=== PATIENT | female | born 1930 | race Caucasian/White ===

== ENCOUNTER 2017-07-28 12:07 | Emergency (ER) | payer OTHER, MEDICARE ==
[2017-07-28 12:17] VITALS: BP 162/89
--- NOTE | 2017-07-28 13:31 | XRAY Preliminary Report ---
Exam: XR HUMERUS RT IMPRESSION: Right humeral head and neck fracture. [facility] SITE ID: [id number]
--- NOTE | 2017-07-28 13:35 | XRAY Preliminary Report ---
Exam: XR SHOULDER 3 VIEW RT IMPRESSION: Right humeral head and neck fracture. [facility] SITE ID: [id number]
--- NOTE | 2017-07-28 13:43 | ED Physician Documentation ---
PD HPI Fall - Stated complaint Stated Complaint: GLF - Chief complaint Chief Complaint: Trauma Ext - History obtained from History obtained from: Patient - History of Present Illness Mechanism of injury: Tripped (fell to the right.), Lost balance. No: Syncope Fall distance: Standing position Timing - onset: Today Injury(ies) location: Face (tip of nose), Right Upper Extremity (humerus/ shoulder), Right Lower Extremity (knee abrasion), Left Lower Extremity (knee abrasion) Associated symptoms: No: LOC, AMS, Neck pain, Weakness, Paresthesias Worsens with: Movement Contributing factors: No: Anticoagulated, Intoxicated Similar symptoms before: Has not had sx before Recently seen: Not recently seen Review of Systems Constitutional: denies: Fever, Chills Nose: denies: Rhinorrhea / runny nose, Congestion Throat: denies: Sore throat Respiratory: denies: Dyspnea, Cough Musculoskeletal: denies: Neck pain, Back pain Neurologic: denies: Headache, Head injury PD PAST MEDICAL HISTORY - Past Medical History Past Medical History: Yes Cardiovascular: Hypertension Respiratory: None Neuro: None Endocrine/Autoimmune: None GI: None 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 : None HEENT: None Psych: None Musculoskeletal: None Derm: None - Past Surgical History Past Surgical History: Yes General: Appendectomy - Present Medications Home Medications: Ambulatory Orders Medication Instructions Recorded Confirmed Docusate Sodium 100 mg PO DAILY #20 capsule 07/28/17 07/30/17 Naproxen 375 mg PO BID #20 tablet 07/28/17 07/30/17 Losartan [Cozaar] 100 mg PO DAILY 07/30/17 07/30/17 Metoprolol Tartrate [Lopressor] 25 mg PO BID 07/30/17 07/30/17 Simvastatin [Zocor] 20 mg PO DAILY 07/30/17 07/30/17 Nitrofurantoin Monohyd/M-Cryst 100 mg PO BID 5 Days capsule 07/31/17 [Macrobid 100 mg Capsule] - Allergies Allergies/Adverse Reactions: Allergies Allergy/AdvReac Type Severity Reaction Status Date / Time No Known Drug Allergies Allergy Verified 07/30/17 22:51 - Social History Does the pt smoke?: Yes Smoking Status: Light tobacco smoker Does the pt drink ETOH?: Yes ETOH Use: Wine Does the pt have substance abuse?: No - Immunizations Immunizations are current?: No Immunizations: TDAP current <10years - POLST Patient has POLST: No PD ED PE NORMAL - Vitals Vital signs reviewed: Yes - General General: Alert and oriented X 3, Well developed/nourished, Other (guarding motion right shoulder. Pain with slight movement. ) - HEENT HEENT: Atraumatic (except for mild abrasion on nose tip. ) - Neck Neck: Supple, no meningeal sign, No bony TTP, No adenopathy - Cardiac Cardiac: RRR, No murmur - Respiratory Respiratory: Clear bilaterally, Other (no chestwall tenderness.) - Abdomen Abdomen: Soft, Non tender - Back Back: No CVA TTP, No spinal TTP - Derm Derm: Normal color, Warm and dry - Extremities Extremities: Other (knees with some mild tenderness anteriorly but good ROM and able to stand/walk, without effusion. Right proximal humerus area tender, without swelling/bruising yet. Clavicle not tender. Normal color and pulses in wrist/hand.) - Neuro Neuro: Alert and oriented X 3, No motor deficit, No sensory deficit, Normal speech Results - Vitals Vitals: Oxygen O2 Source Room air - Rads (name of study) right shoulder Radiology: Prelim report reviewed, EMP read contemporaneously (proximal humerus fracture. ) PD MEDICAL DECISION MAKING - ED course Complexity details: reviewed results, considered differential, d/w patient Departure - Departure Disposition: 01 Home, Self Care Clinical Impression: Accidental fall Qualifiers: Encounter type: initial encounter Qualified Code(s): W19.XXXA - Unspecified fall, initial encounter Knee abrasion Qualifiers: Encounter type: initial encounter Laterality: unspecified laterality Qualified Code(s): S80.219A - Abrasion, unspecified knee, initial encounter Nose abrasion Qualifiers: Encounter type: initial encounter Qualified Code(s): S00.31XA - Abrasion of nose, initial encounter Proximal humerus fracture Qualifiers: Encounter type: initial encounter Fracture type: closed Fracture morphology: other fracture Fracture alignment: displaced Laterality: right Qualified Code(s) : S42.291A - Other displaced fracture of upper end of right humerus, initial encounter for closed fracture Condition: Stable Record reviewed to determine appropriate education?: Yes Instructions: ED Fx Shoulder Follow-Up: Jean Carlos Parker MD [Provider Admit Priv/Credential] - Prescriptions: Docusate Sodium 100 mg PO DAILY #20 capsule Naproxen 375 mg PO BID #20 tablet Comments: Regular food and fluids. Use naproxen twice daily for the next 7-10 days as an anti-inflammatory. Add Tylenol or hydrocodone if needed for pain. Use a stool softener daily to prevent constipation from the medications. Keep the right arm in a sling to support and help align the fracture. Follow-up with orthopedics in about a week, call tomorrow or today for an appointment. He will want to sleep in the best position comfortable, most people find a recliner with the sling supporting the arm to be the best but whatever works for you. Recheck if worsening pain or other complications such as discoloration numbness or weakness in the hand. This will take about 6 weeks to fully heal up. Discharge Date/Time: 07/28/17 14:43
--- NOTE | 2017-07-28 13:51 | XRAY Report ---
EXAM: RIGHT HUMERUS RADIOGRAPHY EXAM DATE: 07/28/2017 12:58 PM. CLINICAL HISTORY: Pain after fall today. COMPARISON: None. TECHNIQUE: 2 views. FINDINGS: Bones: Osteopenia. Acute comminuted right humeral head and neck fracture, mildly impacted, with 15 degree anterior angul ation at the impaction site. The epicenter of the humeral head is at the epicenter of the glenoid fos sa. Joints: Elbow is grossly unremarkable. Soft Tissues: Edema at the fracture site. IMPRESSION: Right humeral head and neck fracture. [facility] Referring Provider Line: [phone] SITE ID: [id number]
--- NOTE | 2017-07-28 13:51 | XRAY Report ---
EXAM: Right SHOULDER RADIOGRAPHY EXAM DATE: 07/28/2017 12:58 PM. CLINICAL HISTORY: Right shoulder pain after a fall today. COMPARISON: None. TECHNIQUE: 3 views. FINDINGS: Bones: Acute comminuted displaced impacted fracture involving the right humeral head and neck. Degree of anterior angulation is 30 degrees, which is more accurately measured on this dedicated shoulder v ersus the prior humerus study. Joints: Epicenter of the humeral head fracture fragments are at the epicenter of the glenoid fossa. N ormal AC joint. Type II acromion. Soft tissues: Edema at the fracture site. IMPRESSION: Right humeral head and neck fracture. [facility] Referring Provider Line: [phone] SITE ID: [id number]
[2017-07-28] MEDS ORDERED: HYDROcod/ACETAM 5/325 MG TABLET PO STA (14:16)
[2017-07-28] MEDS ORDERED: IBUPROFEN 600 MG TABLET PO STA (14:16)
[2017-07-28] MEDS ORDERED: IBUPROFEN 600 MG TABLET PO ONE (14:31)
[2017-07-28] MEDS ORDERED: HYDROcod/ACETAM 5/325 MG TABLET ONE (14:31)
== END 2017-07-28 14:43 | disposition home or self-care (01) ==
LOC: ED 12:07
DX: S42.291A Other displaced fracture of upper end of right humerus, initial encounter for closed fracture (principal); S00.31XA Abrasion of nose, initial encounter; S80.212A Abrasion, left knee, initial encounter; S80.211A Abrasion, right knee, initial encounter; W01.0XXA Fall on same level from slipping, tripping and stumbling without subsequent striking against object, initial encounter; I10 Essential (primary) hypertension; F17.200 Nicotine dependence, unspecified, uncomplicated
CPT/HCPCS: 1040M; 73030; 73060; 99283; A9270

== ENCOUNTER 2017-07-30 22:38 | Emergency (ER) | payer MEDICARE ==
[2017-07-30 23:10] LABS: BASOPHILS # (AUTO) 0.1 10^3/uL (0.0-0.1); BASOPHILS % (AUTO) 0.7 %; EOSINOPHILS # (AUTO) 0.4 10^3/uL (0.0-0.7); EOSINOPHILS % (AUTO) 4.3 %; HCT - HEMATOCRIT 31.6 % (37.0-47.0); HGB - HEMOGLOBIN 10.6 g/dL (12.0-16.0); LYMPHOCYTES # (AUTO) 1.7 10^3/uL (1.5-3.5); LYMPHOCYTES % (AUTO) 18.3 %; MEAN CORPUSCULAR HEMOGLOBIN 29.3 pg (27.0-31.0); MEAN CORPUSCULAR HGB CONC 33.5 g/dL (32.0-36.0); MEAN CORPUSCULAR VOLUME 87.7 fL (81.0-99.0); MEAN PLATELET VOLUME 7.4 fL (7.9-10.8); MONOCYTES # (AUTO) 1.2 10^3/uL (0.0-1.0); MONOCYTES % (AUTO) 12.9 %; NEUTROPHILS % (AUTO) 63.8 %; RED BLOOD COUNT 3.61 10^6/uL (4.20-5.40); UNCORRECTED WHITE BLOOD COUNT 9.4 x10^3/uL; WHITE BLOOD COUNT 9.4 x10^3/uL (4.8-10.8)
[2017-07-30 23:23] LABS: BILIRUBIN,TOTAL 0.6 mg/dL (0.2-1.0); CALCIUM 8.6 mg/dL (8.5-10.3); CREATININE 1.4 mg/dL (0.4-1.0); POTASSIUM 4.1 mmol/L (3.5-5.0); TOTAL PROTEIN 7.3 g/dL (6.7-8.2)
[2017-07-30 23:48] LABS: BILIRUBIN,URINE NEGATIVE (NEGATIVE)
[2017-07-30 23:50] LABS: UA w/ MICROSCOPIC CHARGE YES
--- NOTE | 2017-07-30 23:57 | CT Preliminary Report ---
Exam: CT HEAD W/O IMPRESSION: Generalized age-related cortical atrophic changes without evidence of acute intracranial abnormality. [facility] SITE ID: [id number]
[2017-07-30 23:59] LABS: UR CULTURE IF IND NOT INDICATED
--- NOTE | 2017-07-31 | CT Report ---
EXAM: CT HEAD EXAM DATE: 07/30/2017 11:22 PM. CLINICAL HISTORY: Fall, decreased mental status. COMPARISON: None. TECHNIQUE: Multiaxial CT images were obtained from the foramen magnum to the vertex. Reformats: Coron al. IV contrast: None. In accordance with CT protocol optimization, one or more of the following dose reduction techniques w ere utilized for this exam: automated exposure control, adjustment of mA and/or KV based on patient s ize, or use of iterative reconstructive technique. FINDINGS: Parenchyma: No intraparenchymal hemorrhage. No evidence of mass, midline shift, or CT findings of acu te infarction. Luna-white differentiation is distinct. Diffuse chronic microangiopathic white matter changes are evident. Extraaxial Spaces: Normal for age. No subdural or epidural collections identified. Ventricles: The ventricles and cortical sulci are enlarged, consistent with age-related tissue loss. Sinuses and orbits: Imaged paranasal sinuses, orbits, and mastoids show no significant abnormality. Bones: No evidence of fracture or calvarial defect. Other: None. IMPRESSION: Generalized age-related cortical atrophic changes without evidence of acute intracranial abnormality. [facility] Referring Provider Line: [phone] SITE ID: [id number]
[2017-07-31] MEDS ORDERED: ISOPROTERENOL IVP STA (00:02)
[2017-07-31] MEDS ORDERED: SODIUM CHLORIDE 0.9% IVP STA (00:02)
[2017-07-31] MEDS ORDERED: NITROFURANTOIN MACRO 100 MG CAPSULE PO STA (00:36)
--- NOTE | 2017-07-31 00:36 | ED Physician Documentation ---
PD HPI ALTERED MENTAL STATUS - Stated complaint Stated Complaint: ALOC - Chief complaint Chief Complaint: Neuro - History obtained from History obtained from: Patient, Family - History of Present Illness Timing - onset: Yesterday Timing - details: Gradual onset, Waxing and waning Quality / character: Confused, Disoriented Associated symptoms: No: Fever, Headache, Cough, Urinary sx, General weakness Contributing factors: New medication. No: Anticoagulated, Diabetic Basline status: Alert and oriented X 3, Ambulatory, Independent Similar symptoms before: Has not had sx before Recently seen: Not recently seen - Additional information Additional information: Patient is an 87 year old female who is brought in by her family for intermittent confusion and delusions. Family state that during the day the patient is fine, but for the last few days, at night the patient has become confused. She will be ok again the next day. The family state that it seems that the symptoms started after the patient fell a few days ago. Upon initial evaluation in the emergency department patient was awake, alert and oriented and in no distress. Review of Systems Constitutional: denies: Fever, Chills Eyes: denies: Decreased vision, Photophobia Nose: reports: Reviewed and negative Throat: reports: Reviewed and negative Cardiac: denies: Chest pain / pressure, Palpitations GI: denies: Abdominal Pain, Nausea, Vomiting : denies: Dysuria, Frequency Skin: denies: Rash, Lesions Neurologic: reports: Confused, Altered mental status. 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 : None HEENT: None Psych: None Musculoskeletal: None Derm: None - Past Surgical History Past Surgical History: Yes General: Appendectomy - Present Medications Home Medications: Ambulatory Orders Medication Instructions Recorded Confirmed Docusate Sodium 100 mg PO DAILY #20 capsule 07/28/17 07/30/17 Naproxen 375 mg PO BID #20 tablet 07/28/17 07/30/17 Losartan [Cozaar] 100 mg PO DAILY 07/30/17 07/30/17 Metoprolol Tartrate [Lopressor] 25 mg PO BID 07/30/17 07/30/17 Simvastatin [Zocor] 20 mg PO DAILY 07/30/17 07/30/17 Nitrofurantoin Monohyd/M-Cryst 100 mg PO BID 5 Days capsule 07/31/17 [Macrobid 100 mg Capsule] - Allergies Allergies/Adverse Reactions: Allergies Allergy/AdvReac Type Severity Reaction Status Date / Time No Known Drug Allergies Allergy Verified 07/30/17 22:51 - Social History Does the pt smoke?: Yes Smoking Status: Current every day smoker Does the pt drink ETOH?: Yes Does the pt have substance abuse?: No - Immunizations Immunizations are current?: No Immunizations: TDAP current <10years - POLST Patient has POLST: No PD ED PE NORMAL - Vitals Vital signs reviewed: Yes - General General: Alert and oriented X 3, No acute distress, Well developed/nourished - HEENT HEENT: Atraumatic, PERRL - Neck Neck: Supple, no meningeal sign, No JVD - Cardiac Cardiac: RRR, No murmur - Respiratory Respiratory: No respiratory distress, Clear bilaterally - Abdomen Abdomen: Soft, Non tender, Non distended - Neuro Neuro: Alert and oriented X 3, No motor deficit, No sensory deficit, Normal speech Eye Opening: Spontaneous Motor: Obeys Commands Verbal: Oriented GCS Score: 15 - Psych Psych: Normal mood PD ED PE EXPANDED - Extremities Extremities: Right arm (tenderness, swelling and significant ecchymosis of right upper extremity) Results - Vitals Vitals: Vital Signs - 24 hr 07/30/17 07/31/17 22:40 00:48 Temperature 36.8 C 36.5 C Heart Rate 70 62 Respiratory 18 18 Rate Blood Pressure 172/77 H 163/98 H O2 Saturation 97 97 Oxygen O2 Source Room air - Labs Labs: Laboratory Tests 07/30/17 07/30/17 07/30/17 23:00 23:05 23:05 WBC 9.4 RBC 3.61 L Hgb 10.6 L Hct 31.6 L MCV 87.7 MCH 29.3 MCHC 33.5 RDW 14.0 Plt Count 277 MPV 7.4 L Neut # 6.0 Lymph # 1.7 [place] # 1.2 H Eos # 0.4 Baso # 0.1 Absolute Nucleated RBC 0.00 Nucleated RBC % 0.0 Sodium 136 Potassium 4.1 Chloride 98 L Carbon Dioxide 25 Anion Gap 13.0 BUN 24 H Creatinine 1.4 H Estimated GFR (MDRD) 36 L Glucose 113 H Calcium 8.6 Total Bilirubin 0.6 AST 22 ALT 17 Alkaline Phosphatase 56 Total Protein 7.3 Albumin 3.7 Globulin 3.6 Albumin/Globulin Ratio 1.0 Lipase 53 H TSH Urine Color YELLOW Urine Clarity CLEAR Urine pH 6.0 Ur Specific [place] 1.010 Urine Protein NEGATIVE Urine Glucose (UA) NEGATIVE Urine Ketones TRACE Urine Occult Blood NEGATIVE Urine Nitrite NEGATIVE Urine Bilirubin NEGATIVE Urine Urobilinogen 0.2 (NORMAL) Ur Leukocyte Esterase SMALL H Urine RBC 0-5 Urine WBC 6-10 H Ur Squamous Epith Cells MOD Squamous H Urine Bacteria Few Ur Microscopic Review INDICATED Urine Culture Comments NOT INDICATED 07/30/17 23:05 WBC RBC Hgb Hct MCV MCH MCHC RDW Plt Count MPV Neut # Lymph # [place] # Eos # Baso # Absolute Nucleated RBC Nucleated RBC % Sodium Potassium Chloride Carbon Dioxide Anion Gap BUN Creatinine Estimated GFR (MDRD) Glucose Calcium Total Bilirubin AST ALT Alkaline Phosphatase Total Protein Albumin Globulin Albumin/Globulin Ratio Lipase TSH 8.48 H Urine Color Urine Clarity Urine pH Ur Specific [place] Urine Protein Urine Glucose (UA) Urine Ketones Urine Occult Blood Urine Nitrite Urine Bilirubin Urine Urobilinogen Ur Leukocyte Esterase Urine RBC Urine WBC Ur Squamous Epith Cells Urine Bacteria Ur Microscopic Review Urine Culture Comments - Rads (name of study) ct head Radiology: Final report received (no acute intracranial pathology) PD MEDICAL DECISION MAKING - ED course Complexity details: reviewed old records, reviewed results, re-evaluated patient , considered differential, d/w patient, d/w family ED course: Patient was seen and examined at bedside. labs were drawn and urine was collected. Due to the previous trauma (broken humerus) and change in mental status cT head was ordered. When patient's labs came back patient was found to have findings suggestive of a uti. Due to patient's change in mental status it was decided to start the patient on macrobid. Also a lengthy discussion was had with the family concerning dementia, sun-downing and the aging process. Family agreed to follow up with the patient's physician. Patient required no further work up and was stable for discharge [facility] outpatient follow up. Departure - Departure Disposition: 01 Home, Self Care Clinical Impression: Urinary tract infection Condition: Good Instructions: ED UTI Cystitis Female Follow-Up: primary,care provider [Other] - Within 3 Days Prescriptions: Nitrofurantoin Monohyd/M-Cryst [Macrobid 100 mg Capsule] 100 mg PO BID 5 Days capsule Comments: Your diagnostics today showed a possible urinary tract infection. You will be started on antibiotics tonight and will be on them for the next five days. The confusion may be in part from the urinary tract infection, but also may be part of the aging process. It is important that you follow up with your pmd early next week for further evaluation and care. You may return to the emergency department at any time for new, worsening or uncontrollable symptoms. Discharge Date/Time: 07/31/17 00:51
[2017-07-31] MEDS ORDERED: NITROFURANTOIN MACRO 100 MG CAPSULE PO ONE (00:46)
[2017-07-31 00:51] VITALS: BP 163/98
== END 2017-07-31 00:51 | disposition home or self-care (01) ==
LOC: ED 22:38
DX: N39.0 Urinary tract infection, site not specified (principal); I10 Essential (primary) hypertension; F17.200 Nicotine dependence, unspecified, uncomplicated
CPT/HCPCS: 36415; 70450; 80053; 81001; 83690; 84443; 85025; 99283; 99284; A9270; 81003; 87086

== ENCOUNTER 2018-06-09 17:15 | Emergency (ER) | payer MEDICARE ==
[2018-06-09] MEDS ORDERED: SODIUM CHLORIDE 0.9% 1,000 ML IV ONE (18:16)
[2018-06-09] MEDS ORDERED: ONDANSETRON 4 MG/2 ML VIAL IVP STA (18:16)
[2018-06-09 18:46] LABS: BILIRUBIN,URINE NEGATIVE (NEGATIVE); GLUCOSE, URINE (UA) NEGATIVE (NEGATIVE); KETONES,URINE (UA) NEGATIVE (NEGATIVE); LEUKOCYTE ESTERASE, URINE NEGATIVE (NEGATIVE); NITRITE,URINE NEGATIVE (NEGATIVE); OCCULT BLOOD,URINE NEGATIVE (NEGATIVE); PROTEIN,URINE NEGATIVE (NEGATIVE); UROBILINOGEN,URINE 0.2 (NORMAL) E.U./dL (NORMAL)
[2018-06-09 18:47] LABS: BASOPHILS % (AUTO) 0.5 %; CLARITY,URINE CLEAR (CLEAR); EOSINOPHILS # (AUTO) 0.1 10^3/uL (0.0-0.7); EOSINOPHILS % (AUTO) 1.8 %; HGB - HEMOGLOBIN 13.1 g/dL (12.0-16.0); LYMPHOCYTES # (AUTO) 1.2 10^3/uL (1.5-3.5); LYMPHOCYTES % (AUTO) 14.5 %; MEAN CORPUSCULAR HEMOGLOBIN 29.3 pg (27.0-31.0); MEAN CORPUSCULAR HGB CONC 33.8 g/dL (32.0-36.0); MEAN CORPUSCULAR VOLUME 86.8 fL (81.0-99.0); MONOCYTES # (AUTO) 0.7 10^3/uL (0.0-1.0); MONOCYTES % (AUTO) 9.1 %; NEUTROPHILS % (AUTO) 74.1 %; PLT - PLATELET COUNT 267 10^3/uL (130-450); RED BLOOD COUNT 4.46 10^6/uL (4.20-5.40); RED CELL DISTRIBUTION WIDTH 14.7 % (12.0-15.0); WHITE BLOOD COUNT 8.1 x10^3/uL (4.8-10.8)
[2018-06-09] MEDS ORDERED: IOPAMIDOL-300 100 ML VIAL ONE (18:52)
[2018-06-09 18:59] LABS: ALBUMIN/GLOBULIN RATIO 1.1 (1.0-2.2); BILIRUBIN,TOTAL 0.3 mg/dL (0.2-1.0); CALCIUM 9.2 mg/dL (8.5-10.3); CREATININE 0.9 mg/dL (0.4-1.0); TOTAL PROTEIN 7.7 g/dL (6.7-8.2)
[2018-06-09] MEDS ORDERED: IOPAMIDOL-300 100 ML VIAL IVP ONE (19:23)
[2018-06-09 20:06] VITALS: BP 151/79
--- NOTE | 2018-06-09 20:26 | CT Report ---
Reason: LLQ pain Procedure Date: 06/09/2018 Accession Number: [id number] / [id number] Procedure: CT - Abdomen/Pelvis W/ CPT Code: FULL RESULT: EXAM: CT ABDOMEN AND PELVIS EXAM DATE: 06/09/2018 07:34 PM. CLINICAL HISTORY: Left lower quadrant pain. COMPARISONS: CT abdomen and pelvis without contrast 09/28/2012 12:38 PM. TECHNIQUE: Routine helical CT imaging was performed through the abdomen and pelvis. IV contrast: Isovue-300 100 mL. Enteric contrast: No. Reconstructions: Coronal and sagittal. In accordance with CT protocol optimization, one or more of the following dose reduction techniques were utilized for this exam: automated exposure control, adjustment of mA and/or KV based on patient size, or use of iterative reconstructive technique. FINDINGS: Lung Bases: Lung bases are clear. Moderate hiatal hernia. No effusions. Liver: Normal. No masses. Gallbladder/Bile Ducts: Unremarkable. Spleen: Normal. Pancreas: Normal. Adrenal Glands: Normal. Kidneys: No mass or hydronephrosis. No nonobstructing stones. Low density exophytic mid left renal cyst. No obstructing ureteral stone. Peritoneal Cavity/Bowel: Normal. No free fluid, free air or adenopathy. No masses or acute inflammatory process. There are multiple diverticula seen which most severely affect the sigmoid colon. No wall thickening or adjacent inflammation seen. No obstruction noted. Appendix not seen. No focal right lower quadrant inflammation. 3 cm low density cystic structure near the terminal ileum is unchanged on image 3, 53. No enhancing components or thickened septations. Small fat-containing left inguinal hernia. No incarcerated bowel. Pelvic Organs: Normal. The bladder and visualized pelvic organs are within normal limits. Vasculature: Diffuse atheromatous plaques are present in the abdominal aorta and branch vessels. No aneurysm. Normal IVC. Extensive splenic artery calcifications with mid splenic artery ectasia. Bones: No osteoblastic or osteolytic lesions are noted. Multilevel degenerative disk disease and facet arthropathy is noted. Gentle convex to the right curvature of the mid lumbar spine. No spondylolisthesis. Other: None. IMPRESSION: 1. Diverticulosis. No inflammation, obstruction, perforation or abscess. 2. Stable fluid density cystic structure near the terminal ileum. No enhancing or concerning features. Differential is unchanged. 3. Moderate hiatal hernia. 4. Stable fat-containing left inguinal hernia. [facility]
--- NOTE | 2018-06-09 20:50 | ED Physician Documentation ---
PD HPI ABD PAIN - Stated complaint Stated Complaint: DIARRHEA - Chief complaint Chief Complaint: Abd Pain - History obtained from History obtained from: Patient - Additional information Additional information: 87-year-old female presents the emergency department with 1 day of diarrhea. The patient reports significant amounts of diarrhea today but denies any blood in the diarrhea. The patient reports left lower abdominal pain which has slightly improved. The patient denies vomiting, fevers, recent antibiotic usage or hospitalization. Symptoms are described as moderate. No triggering factors. No relieving factors. No other associated symptoms Review of Systems Constitutional: reports: Fatigue. 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 : None HEENT: None Psych: None Musculoskeletal: None Derm: None Other Past Medical History: hernia; pt is on oxygen at night - Past Surgical History Past Surgical History: Yes General: Appendectomy HEENT: Tonsil/Adenoidectomy - Present Medications Home Medications: Ambulatory Orders Medication Instructions Recorded Confirmed Docusate Sodium 100 mg PO DAILY #20 capsule 07/28/17 07/30/17 Naproxen 375 mg PO BID #20 tablet 07/28/17 07/30/17 Losartan [Cozaar] 100 mg PO DAILY 07/30/17 07/30/17 Metoprolol Tartrate [Lopressor] 25 mg PO BID 07/30/17 07/30/17 Simvastatin [Zocor] 20 mg PO DAILY 07/30/17 07/30/17 Nitrofurantoin Monohyd/M-Cryst 100 mg PO BID 5 Days capsule 07/31/17 [Macrobid 100 mg Capsule] Ondansetron Odt [Zofran] 4 mg TL Q6H PRN #30 tablet 06/09/18 - Allergies Allergies/Adverse Reactions: Allergies Allergy/AdvReac Type Severity Reaction Status Date / Time No Known Drug Allergies Allergy Verified 06/09/18 17:36 - Social History Does the pt smoke?: Yes Smoking Status: Current every day smoker Does the pt drink ETOH?: Yes ETOH Use: Wine Does the pt have substance abuse?: No - Immunizations Immunizations are current?: Yes Immunizations: TDAP current <10years - POLST Patient has POLST: Yes PD ED PE NORMAL - General General: Alert and oriented X 3, No acute distress - HEENT HEENT: Atraumatic, PERRL, EOMI, Ears normal - Cardiac Cardiac: RRR, Strong equal pulses - Respiratory Respiratory: No respiratory distress, Clear bilaterally - Abdomen Abdomen: Soft, Non distended. No: Non tender (The patient has left lower abdominal tenderness) - Back Back: No CVA TTP - Derm Derm: Normal color - Extremities Extremities: No deformity - Neuro Neuro: Alert and oriented X 3, Normal speech - Psych Psych: Normal affect Results - Vitals Vitals: Vital Signs - 24 hr 06/09/18 06/09/18 17:30 20:05 Temperature 36.4 C L Heart Rate 87 86 Respiratory 18 16 Rate Blood Pressure 183/84 H 151/79 H O2 Saturation 97 98 Oxygen O2 Source Room air - Labs Labs: Laboratory Tests 06/09/18 06/09/18 06/09/18 18:40 18:40 18:40 WBC 8.1 RBC 4.46 Hgb 13.1 Hct 38.7 MCV 86.8 MCH 29.3 MCHC 33.8 RDW 14.7 Plt Count 267 MPV 7.0 L Neut # (Auto) 6.0 Lymph # (Auto) 1.2 L [place] # (Auto) 0.7 Eos # (Auto) 0.1 Baso # (Auto) 0.0 Absolute Nucleated RBC 0.00 Nucleated RBC % 0.0 Sodium 137 Potassium 4.0 Chloride 99 L Carbon Dioxide 28 Anion Gap 10.0 BUN 24 H Creatinine 0.9 Estimated GFR (MDRD) 59 L Glucose 116 H Calcium 9.2 Total Bilirubin 0.3 AST 25 ALT 18 Alkaline Phosphatase 80 Total Protein 7.7 Albumin 4.0 Globulin 3.7 Albumin/Globulin Ratio 1.1 Lipase 52 H Urine Color YELLOW Urine Clarity CLEAR Urine pH 6.0 Ur Specific [place] <=1.005 Urine Protein NEGATIVE Urine Glucose (UA) NEGATIVE Urine Ketones NEGATIVE Urine Occult Blood NEGATIVE Urine Nitrite NEGATIVE Urine Bilirubin NEGATIVE Urine Urobilinogen 0.2 (NORMAL) Ur Leukocyte Esterase NEGATIVE Ur Microscopic Review NOT INDICATED Urine Culture Comments NOT INDICATED - Rads (name of study) CT abd/pelvis Radiology: Final report received (1. Diverticulosis. No inflammation, obstruction, perforation or abscess. 2. Stable fluid density cystic structure near the terminal ileum. No enhancing or concerning features. Differential is unchanged.3. Moderate hiatal hernia. 4. Stable fat-containing left inguinal hernia.) PD MEDICAL DECISION MAKING - ED course ED course: The patient is aware of the CT findings, the patient has elected to not undergo any surgical procedure regarding these findings. On reevaluation the patient is resting comfortably and appears to be in no significant distress. The patient's workup does not reveal an acute etiology that would necessitate admission to the hospital or acute surgical consultation. The patient appears appropriate for discharge and ongoing outpatient management. I discussed with her warning signs and recommended return to the emergency department for any worsening or any concerns. Departure - Departure Disposition: 01 Home, Self Care Clinical Impression: Hiatal hernia Abdominal pain Qualifiers: Abdominal location: lower abdomen, unspecified Qualified Code(s): R10.30 - Lower abdominal pain, unspecified Diarrhea Qualifiers: Diarrhea type: unspecified type Qualified Code(s): R19.7 - Diarrhea, unspecified Condition: Good Instructions: Abdominal Pain, Diarrhea Prescriptions: Ondansetron Odt [Zofran] 4 mg TL Q6H PRN #30 tablet PRN Reason: Nausea / Vomiting Comments: Please follow-up with primary care for recheck. Please return to the emergency department for any worsening or any concerns.
== END 2018-06-09 21:03 | disposition home or self-care (01) ==
LOC: ED 17:15
DX: K44.9 Diaphragmatic hernia without obstruction or gangrene (principal); R10.30 Lower abdominal pain, unspecified; I10 Essential (primary) hypertension; F17.200 Nicotine dependence, unspecified, uncomplicated
CPT/HCPCS: 36415; 74177; 80053; 81003; 83690; 85025; 96360; 99283; Q9967; 81001; 87086

== ENCOUNTER 2018-10-04 14:52 | Outpatient (CLI) | payer MEDICARE | END 2018-10-04 14:53 | disposition critical access hospital (66) | LOC: EMS 14:52 | PROVIDERS: ATTEND Surgery | DX: R41.82 Altered mental status, unspecified (principal) | CPT/HCPCS: A0425; A0429 ==

== ENCOUNTER 2018-10-04 15:37 | Observation (INO) | payer MEDICARE ==
--- NOTE | 2018-10-04 15:48 | ED Physician Documentation ---
PD HPI FOCAL NEURO - Stated complaint Stated Complaint: AMS - History obtained from History obtained from: Patient, EMS - History of Present Illness Timing - onset: Other (This is an 88-year-old woman who seems to have symptoms is brought in by ambulance for 2 episodes of what sound like TIA. 2 days ago she had a 20-minute episode of garbled speech in the morning. 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 This happened again today, she was trying to put away groceries in her bedroom and was confused with slurred speech and garbled speech for about 20 minutes. 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 : None HEENT: None Psych: None Musculoskeletal: None Derm: None - Past Surgical History Past Surgical History: Yes General: Appendectomy HEENT: Tonsil/Adenoidectomy - Present Medications Home Medications: Ambulatory Orders Medication Instructions Recorded Confirmed Losartan [Cozaar] 100 mg PO DAILY 07/30/17 10/04/18 Metoprolol Tartrate [Lopressor] 25 mg PO BID 07/30/17 10/04/18 - Allergies Allergies/Adverse Reactions: Allergies Allergy/AdvReac Type Severity Reaction Status Date / Time No Known Drug Allergies Allergy Verified 10/04/18 15:55 - Social History Does the pt smoke?: Yes Smoking Status: Current every day smoker Does the pt drink ETOH?: Yes Does the pt have substance abuse?: No - Family History Family history: reports: Non contributory - Immunizations Immunizations are current?: Yes Immunizations: TDAP current <10years - POLST Patient has POLST: Yes PD ED PE NORMAL - Vitals Vital signs reviewed: Yes - General General: Other (She is alert, oriented to person and she knows she is in the hospital but states the hospital is in [place]. She is completely confused about the month and date.) - HEENT HEENT: PERRL, EOMI - Neck Neck: Supple, no meningeal sign, No bony TTP - Cardiac Cardiac: Other (regularly irregular, sounds like ventricular bigeminy) - Respiratory Respiratory: No respiratory distress, Clear bilaterally - Abdomen Abdomen: Soft, Non tender - Extremities Extremities: No deformity, No tenderness to palpate, No edema, No calf tenderness / cord - Neuro Neuro: train conductor 2-12 intact, No motor deficit, No sensory deficit, Normal speech Eye Opening: Spontaneous Motor: Obeys Commands Verbal: Confused GCS Score: 14 - Psych Psych: Normal mood, Normal affect NIHSS - Time Time: 15:45 - Level of Consciousness Level of consciousness: (0) Alert, Keenly responsive LOC Questions: (2) Answers neither correct LOC Commands: (0) Performs both correctly - Gaze Best Gaze: (0) Normal - Visual Visual: (0) No loss - Facial Palsy Facial Palsy: (0) Normal, symmetrical movement - Motor Arms (both separate) Motor Arm (right): (0) No drift Motor Arm (left): (0) No drift - Motor Legs (both separate) Motor Leg (right): (0) No drift Motor Leg (left): (0) No drift - Limb Ataxia Limb Ataxia: (0) Absent - Sensory Sensory: (0) Normal - Best Language Best Language: (0) No aphasia - Dysarthria Dysarthria: (0) Normal - Extinction and Inattention (formally neg Extinction and inattention: (0) No abnormality - Total Score/Results Total Score/Result: 2 Results - Vitals Vitals: Vital Signs - 24 hr 10/04/18 15:39 Temperature 36 C L Heart Rate 66 Respiratory 18 Rate Blood Pressure 162/67 H O2 Saturation 98 Oxygen O2 Source Room air - EKG (time done) 1550 Rate: Rate (enter#) (64) Rhythm: NSR, LAE Intervals: Normal MA QRS: Normal Ischemia: Q waves (inferior). No: ST elevation c/w ischemia Computer interpretation: Agree with computer 1644 Rate: Rate (enter#) (37) Rhythm: Sinus bradycardia Intervals: Normal MA Ischemia: Non specific changes Compare to prior EKG: Changed from prior EKG Computer interpretation: Agree with computer - Labs Labs: Laboratory Tests 10/04/18 10/04/18 10/04/18 15:58 15:58 15:58 WBC 8.5 RBC 4.84 Hgb 13.8 Hct 42.7 MCV 88.1 MCH 28.6 MCHC 32.5 RDW 14.2 Plt Count 319 MPV 7.1 L Neut # (Auto) 6.1 Lymph # (Auto) 1.3 L [place] # (Auto) 0.8 Eos # (Auto) 0.3 Baso # (Auto) 0.0 Absolute Nucleated RBC 0.00 Nucleated RBC % 0.1 PT 11.0 INR 1.0 Sodium 132 L Potassium 3.8 Chloride 95 L Carbon Dioxide 28 Anion Gap 9.0 BUN 33 H Creatinine 1.1 H Estimated GFR (MDRD) 47 L Glucose 110 H Calcium 9.1 Total Bilirubin < 0.2 L AST 25 ALT 19 Alkaline Phosphatase 79 Total Protein 7.6 Albumin 3.9 Globulin 3.7 Albumin/Globulin Ratio 1.1 Lipase 76 H Urine Color Urine Clarity Urine pH Ur Specific [place] Urine Protein Urine Glucose (UA) Urine Ketones Urine Occult Blood Urine Nitrite Urine Bilirubin Urine Urobilinogen Ur Leukocyte Esterase Ur Microscopic Review Urine Culture Comments 10/04/18 16:00 WBC RBC Hgb Hct MCV MCH MCHC RDW Plt Count MPV Neut # (Auto) Lymph # (Auto) [place] # (Auto) Eos # (Auto) Baso # (Auto) Absolute Nucleated RBC Nucleated RBC % PT INR Sodium Potassium Chloride Carbon Dioxide Anion Gap BUN Creatinine Estimated GFR (MDRD) Glucose Calcium Total Bilirubin AST ALT Alkaline Phosphatase Total Protein Albumin Globulin Albumin/Globulin Ratio Lipase Urine Color YELLOW Urine Clarity CLEAR Urine pH 6.0 Ur Specific [place] <=1.005 Urine Protein NEGATIVE Urine Glucose (UA) NEGATIVE Urine Ketones NEGATIVE Urine Occult Blood NEGATIVE Urine Nitrite NEGATIVE Urine Bilirubin NEGATIVE Urine Urobilinogen 0.2 (NORMAL) Ur Leukocyte Esterase NEGATIVE Ur Microscopic Review NOT INDICATED Urine Culture Comments NOT INDICATED - Rads (name of study) CT Head Radiology: EMP read contemporaneously (NAD< small vs ischemic dz) PD MEDICAL DECISION MAKING - ED course ED course: This is an 88-year-old woman with modest dementia presents with 2 episodes over the last few days what sounds like TIA with garbled speech fusion. Examination is normal now except for findings consistent with dementia. Head CT without a cute change. Labs are basically unremarkable. While in the emergency department she did have episodes of bradycardia on the monitor down into the high 30s that were otherwise symptomatic. She is on metoprolol and this will need to be stopped to see if she still has episodes and would need a permanent pacemaker. She will be placed in observation for cessation of her metoprolol, cardiac monitoring and TIA workup. Departure - Departure Disposition: ED Place in Observation Clinical Impression: TIA (transient ischemic attack), Bradycardia Condition: Good
[2018-10-04 16:05] LABS: BASOPHILS % (AUTO) 0.6 %; EOSINOPHILS # (AUTO) 0.3 10^3/uL (0.0-0.7); HGB - HEMOGLOBIN 13.8 g/dL (12.0-16.0); LYMPHOCYTES # (AUTO) 1.3 10^3/uL (1.5-3.5); LYMPHOCYTES % (AUTO) 15.7 %; MEAN CORPUSCULAR HEMOGLOBIN 28.6 pg (27.0-31.0); MEAN CORPUSCULAR HGB CONC 32.5 g/dL (32.0-36.0); MEAN CORPUSCULAR VOLUME 88.1 fL (81.0-99.0); MEAN PLATELET VOLUME 7.1 fL (7.9-10.8); MONOCYTES # (AUTO) 0.8 10^3/uL (0.0-1.0); MONOCYTES % (AUTO) 9.8 %; NEUTROPHILS # (AUTO) 6.1 10^3/uL (1.5-6.6); NEUTROPHILS % (AUTO) 70.9 %; PLT - PLATELET COUNT 319 10^3/uL (130-450); RED BLOOD COUNT 4.84 10^6/uL (4.20-5.40); RED CELL DISTRIBUTION WIDTH 14.2 % (12.0-15.0); WHITE BLOOD COUNT 8.5 x10^3/uL (4.8-10.8)
[2018-10-04 16:16] LABS: BILIRUBIN,URINE NEGATIVE (NEGATIVE); GLUCOSE, URINE (UA) NEGATIVE (NEGATIVE); KETONES,URINE (UA) NEGATIVE (NEGATIVE); LEUKOCYTE ESTERASE, URINE NEGATIVE (NEGATIVE); NITRITE,URINE NEGATIVE (NEGATIVE); OCCULT BLOOD,URINE NEGATIVE (NEGATIVE); PROTEIN,URINE NEGATIVE (NEGATIVE); UROBILINOGEN,URINE 0.2 (NORMAL) E.U./dL (NORMAL)
[2018-10-04 16:17] LABS: CLARITY,URINE CLEAR (CLEAR)
[2018-10-04 16:24] LABS: ALBUMIN 3.9 g/dL (3.2-5.5); ALBUMIN/GLOBULIN RATIO 1.1 (1.0-2.2); ALKALINE PHOSPHATASE 79 IU/L (42-121); ALT ALANINE AMINOTRANSFERASE 19 IU/L (10-60); AST ASPARTATE AMINOTRANSFERASE 25 IU/L (10-42); BILIRUBIN,TOTAL < 0.2 mg/dL (0.2-1.0); BUN - BLOOD UREA NITROGEN 33 mg/dL (6-20); CALCIUM 9.1 mg/dL (8.5-10.3); CARBON DIOXIDE - CO2 28 mmol/L (21-32); CHLORIDE 95 mmol/L (101-111); CREATININE 1.1 mg/dL (0.4-1.0); GFR - MDRD 47 (>89); GLUCOSE 110 mg/dL (70-100); LIPASE 76 U/L (22-51); SODIUM 132 mmol/L (135-145); TOTAL PROTEIN 7.6 g/dL (6.7-8.2)
--- NOTE | 2018-10-04 16:35 | CT Report ---
Reason: TIA Procedure Date: 10/04/2018 Accession Number: [id number] / [id number] Procedure: CT - Head W/O CPT Code: FULL RESULT: EXAM: CT HEAD EXAM DATE: 10/04/2018 04:18 PM. CLINICAL HISTORY: TIA COMPARISON: None. TECHNIQUE: Multiaxial CT images were obtained from the foramen magnum to the vertex. Reformats: Sagittal and coronal. IV contrast: None. In accordance with CT protocol optimization, one or more of the following dose reduction techniques were utilized for this exam: automated exposure control, adjustment of mA and/or KV based on patient size, or use of iterative reconstructive technique. FINDINGS: Parenchyma: Subcortical and periventricular white matter changes consistent with small vessel ischemic disease in the appropriate clinical setting. No intraparenchymal hemorrhage. No evidence of mass, midline shift, or CT findings of infarction. Luna-white differentiation is distinct. Extraaxial Spaces: Normal for age. No subdural or epidural collections identified. Ventricles: Normal in size and position. Sinuses and Orbits: Imaged paranasal sinuses, orbits, and mastoids show no significant abnormality. Bones: No evidence of fracture or calvarial defect. Other: None. IMPRESSION: 1. No acute intracranial abnormality. 2. Small vessel ischemic disease in the appropriate clinical setting. RADIA
[2018-10-04] MEDS ORDERED: ASPIRIN CHEW 81 MG TABLET PO STA (16:55)
[2018-10-04] MEDS ORDERED: SODIUM CHLORIDE FLUSH 0.9% 10 ML SYRINGE IVP PRN (17:06)
[2018-10-04] MEDS ORDERED: ONDANSETRON 4 MG/2 ML VIAL IVP PRN (17:06)
[2018-10-04] MEDS ORDERED: ENOXAPARIN 40 MG/0.4 ML SYRINGE SUBQ STA (17:39)
--- NOTE | 2018-10-04 18:16 | HISTORY & PHYSICAL EXAMINATION ---
Chief Complaint - Chief Complaint Chief Complaint: Dysarthria, speech difficulties History of Present Illness - Admitted From Admitted From:: ED - History Obtained From Records Reviewed: Yes History obtained from: Family Exam Limitations: Dementia - History of Present Illness HPI Comment/Other: This is an 88-year-old woman with hx HTN, vascular dementia diverticulosis prior thyroidectomy not on any thyroid replacement tx, who seems to have symptoms is brought in by ambulance for 2 episodes of what sound like TIA. 2 days ago she had a 20-minute episode of garbled speech in the morning. 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 This happened again today, she was trying to put away groceries in her bedroom and was confused with slurred speech and garbled speech for about 20 minutes. Patient has poor recollection of this but states she feels fine now. Patient with no neuro focal deficits and CT head showing small vessel ischemia, appeared somewhat dry with hx CKD 2 on labs review with a current cr 1.1, Na 132, UA was normal, ECG initially showed NSR but 2nd ecg did show sinus bradycardia 37 bpm and displays 3-4 sec runs of SB to as low as 35 bpm w/ no syncope or symptoms of angina. Patient takes metoprolol plus losartan at home and does not take synthroid for her hypothyroidism that ic clearly seen on labs dated 07/30/17 TSH 8.48. 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 : reports: None HEENT: reports: None Psych: reports: None Musculoskeletal: reports: None Derm: reports: None MRSA Hx?: No - Past Surgical History General: reports: Appendectomy HEENT: reports: Tonsil/Adenoidectomy - POLST Patient has POLST: Yes Meds/Allgy - Home Medications Home Medications: Ambulatory Orders Medication Instructions Recorded Confirmed Losartan [Cozaar] 100 mg PO DAILY 07/30/17 10/04/18 Metoprolol Tartrate [Lopressor] 25 mg PO BID 07/30/17 10/04/18 - Allergies Allergies/Adverse Reactions: Allergies Allergy/AdvReac Type Severity Reaction Status Date / Time No Known Drug Allergies Allergy Verified 10/04/18 15:55 Review of Systems - Constitutional Constitutional: reports: Weakness. denies: Fatigue, Weight gain, Weight loss - Eyes Eyes: reports: Field loss, Vision loss - Ears, Nose & Throat Ears, Nose & Throat: denies: Tinnitus, Vertigo - Cardiovascular Cariovascular: reports: Edema. denies: Irregular heart rate, Palpitations, Chest pain, Exertional dyspnea, Decr. exercise tolerance, Orthopnea - Respiratory Respiratory: denies: Cough, Wheezing, Orthopnea, Apnea, Pleuritic pain - Gastrointestinal Gastrointestinal: reports: Constipation, Diarrhea. denies: Abdominal pain, Abdominal distention, Coffee grounds emesis, Reflux/heartburn - Genitourinary Genitourinary: denies: Dysuria, Frequency, Urgency, Flank pain - Musculoskeletal Musculoskeletal: denies: Muscle pain, Back pain, Muscle aches, Stiffness, Gout, Joint swelling - Integumentary Integumentary: reports: Dryness, Pigment changes. denies: Rash, Pruritis, Lesions - Neurological Neurological: reports: Memory problems. denies: General weakness, Focal weakness, Headache, Dizziness, Abnormal gait - Psychiatric Psychiatric: denies: Depression, Anxiety, Suicidal, Delusions, Hallucinations - Endocrine Endocrine: reports: Intolerance to cold. denies: Polyuria, Polydypsia, Polyphagia - Hematologic/Lymphatic Hematologic/Lymphatic: denies: Anemia, Bruising, Petechiae, Blood clots, Lymphadenopathy Prior Level of Functionality: Patient is independent with her ADL's Exam - Vital Signs Reviewed Vital Signs: Yes Vital Signs: Vital Signs x48h Temp Pulse Resp BP Pulse Ox 10/04/18 17:46 36.8 C 73 16 166/75 H 96 10/04/18 15:39 36 C L 66 18 162/67 H 98 - Physical Exam General Appearance: positive: No acute distress, Alert, Other (demented) Eyes Bilateral: positive: Normal inspection, PERRL, EOMI, Conjunctivae nml ENT: positive: ENT inspection nml, Pharynx nml, Dry mucous membranes Neck: positive: Nml inspection, No JVD, Trachea midline, Other (thyroidectomy scar with no palpable thyroid). negative: Thyromegaly Respiratory: positive: Chest non-tender, No respiratory distress, Breath sounds nml. negative: Wheezes, Rales, Rhonchi Cardiovascular: positive: Regular rate & rhythm, No murmur, No gallop, Bradycardia. negative: Irregularly irregular, JVD present, Systolic murmur, Diastolic murmur, Gallop/S3, Gallop/S4, Friction rub, Decreased pulse(s) Peripheral Pulses: positive: 2+ Abdomen: positive: Non-tender, No organomegaly, Nml bowel sounds, No distention. negative: Bruit Back: positive: Nml inspection Skin: positive: Color nml, No rash, Dry. negative: Pallor Extremities: positive: Non-tender, Full ROM, Nml appearance, Pedal edema (non- pitting to BLLE) Neurologic/Psychiatric: positive: CN's nml (2-12), Motor nml, Sensation nml, Mood/affect nml, Disoriented to time, Weakness Reflexes: Knee (R): 1+, Knee (L): 1+, Ankle (R): 1+, Ankle (L): 1+ Babinski Reflex: Right: Absent, Left: Absent Conclusion/Plan - Problem List (1) TIA (transient ischemic attack) Conclusion/Plan: Patient with possible TIA in association with perhaps BP control as she is on 2 agents. No evidence or mention of syncope, seizure activity, chest pain with cardiac issues other than new onset asymptomatic bradycardia. Obtain TSH, ECHO, orthostats, CT head wa snegative. Would keep off metoprolol for now, no focal neuro deficits are appreciated and would continue with neurochecks q4. Place on ASA daily along with lipid panel in am and statin if indicates, PT in am. (2) Bradycardia Conclusion/Plan: Sec to metoprolol likely vs structural heart or IHD or hypothyroidism induced as high TSH seen on last years labs. Would obtain a repeat TSH, ECHO to evaluate for LAE seen on ECG with evidence of sinus bradycardia with poor R-wave progression and lateral ischemia. Cycle trops, check mag level, discontinue metoprolol for now and correct BP excursions with IV hydralazine prn along with her losartan. No indication for atropine use due to asymptomatic bradycardia. If she becomes symptomatic would transfer to ICU and place on transcutaneous pacing and atropine prn. (3) Acute renal insufficiency Conclusion/Plan: IVFs, avoid nephrotoxic agents, correct electrolytes with her hyponatremia, check mag and correct if needed. (4) Moderate dementia without behavioral disturbance Conclusion/Plan: Would not treat with Aricept as this is well known for heart blocks, would defer tx for now as she does not display behavioral changes. CT head shows small vessel ischemia to indicated vascular-type dementia. (5) Dehydration Conclusion/Plan: IVF's to perfuse kidneys and also washout possible metoprolol induced side effects. Avoid fluid fluid overload if she has severe systolic or diastolic dysfunction, may obtain BNP in am. (6) HTN (hypertension) Qualifiers: Hypertension type: essential hypertension Qualified Code(s): I10 - Essential (primary) hypertension (7) Hypothyroidism Conclusion/Plan: Untreated symptomatic hypothyroidism with hx post-thyroidectomy with TSH of 8.48 on 07/30/17. Would recheck level with a free T4 for possible synthroid tx as this may be influencing patients HR with SB, as she c/o cold intolerance with some BLLE edema and decreased energy level. Qualifiers: Hypothyroidism type: postoperative Qualified Code(s): E89.0 - Postprocedural hypothyroidism - Lab Results Lab results reviewed: Yes Fish Bones: 10/04/18 15:58 10/04/18 15:58 - Diagnostic Imaging Results Diagnostic Imaging Results: positive: Final report reviewed (CT head shows no acute CVA only small vessel ischemia) - EKG Results EKG Interpreted Independently: Yes EKG Comparison: No prior EKG (Sinus bradycardia with lateral ishemia and poor r-wave progression) Core Measures - Anticipated LOS I expect patient to be DC'd or transferred within 96 hours.: Yes - Issues Hospital Issues and Management Plan: ECHO, labs, stroke work up. Possible PT. - DVT/VTE - Prophylaxis VTE/DVT Device ordered at admit?: No Not Ordered - Medical Reason: Not indicated VTE/DVT Prophylaxis med ordered at admit?: Yes - Stroke - Rehab Assessment Rehab services assessment to be ordered?: Yes - AMI - Statin at Admit Aspirin Prescribed on Admit: Yes
[2018-10-04] MEDS: SODIUM CHLORIDE 0.9% 1,000 ML IV SCH (18:36)
[2018-10-04] MEDS: ASPIRIN 325 MG TABLET PO SCH (18:44)
[2018-10-04] MEDS ORDERED: hydrALAZINE INJ 20 MG/ML VIAL IVP PRN (18:49)
[2018-10-04] MEDS ORDERED: FAMOTIDINE 20 MG TABLET PO SCH (21:00)
[2018-10-04] MEDS ORDERED: ENOXAPARIN 30 MG/0.3 ML SYRINGE SUBQ SCH (21:00)
[2018-10-05] MEDS: SODIUM CHLORIDE 0.9% 1,000 ML IV SCH (07:27)
[2018-10-05] MEDS: SODIUM CHLORIDE FLUSH 0.9% 10 ML SYRINGE IVP SCH ×2 (07:27→10:38)
[2018-10-05] MEDS ORDERED: LEVOTHYROXINE 25 MCG TABLET PO SCH (08:00)
[2018-10-05] MEDS ORDERED: POLYETHYLENE GLYCOL 3350 17 GM PACKET PO SCH (09:00)
[2018-10-05] MEDS ORDERED: LOSARTAN 50 MG TABLET PO SCH (09:00)
--- NOTE | 2018-10-05 09:15 | DISCHARGE SUMMARY ---
Discharge Summary Admit Date: 10/04/18 Discharge Date: 10/05/18 Discharging Provider: Dr. Franco Primary Care Provider: Indra Brice Code Status: Attempt Resuscitation Condition at Discharge: Good Discharge Disposition: 01 Home, Self Care - DIAGNOSES Admission Diagnoses: 1) TIA (transient ischemic attack) (2) Bradycardia (3) Acute renal insufficiency (4) Moderate dementia without behavioral disturbance (5) Dehydration (6) HTN (hypertension) (7) Hypothyroidism Discharge Diagnoses with Status of Each Condition: 1) TIA (transient ischemic attack); resolved (2) Grade 2 Diastolic Dysfunction CHF, stable (3) Bradycardia; resolved (4) Acute renal insufficiency; improved (5) Moderate dementia without behavioral disturbance; stable (6) Dehydration; resolved (6) HTN (hypertension); improved (8) Hypothyroidism; stable - HPI History of Present Illness: This is an 88-year-old woman with hx HTN, vascular dementia diverticulosis prior thyroidectomy not on any thyroid replacement tx, who seems to have symptoms is brought in by ambulance for 2 episodes of what sound like TIA. 2 days ago she had a 20-minute episode of garbled speech in the morning. 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 This happened again today, she was trying to put away groceries in her bedroom and was confused with slurred speech and garbled speech for about 20 minutes. Patient has poor recollection of this but states she feels fine now. Patient with no neuro focal deficits and CT head showing small vessel ischemia, appeared somewhat dry with hx CKD 2 on labs review with a current cr 1.1, Na 132, UA was normal, ECG initially showed NSR but 2nd ecg did show sinus bradycardia 37 bpm and displays 3-4 sec runs of SB to as low as 35 bpm w/ no syncope or symptoms of angina. Patient takes metoprolol plus losartan at home and does not take synthroid for her hypothyroidism that ic clearly seen on labs dated 07/30/17 TSH 8.48. - HOSPITAL COURSE Hospital Course: Patient was admitted for possible TIA in association with perhaps BP control as she is on 2 agents. No evidence or mention of syncope, seizure activity, chest pain with cardiac issues other than new onset asymptomatic bradycardia. TSh was high at 11.42 with a low free T4, ECHO showed a Grade 2 Diastolic Dysfunction with mild pulm HTN with EF 70-75%, orthostats ordered, CT head was negative and patient lacked focal deficits which would be suspicious for lacunar or ischemic CVA, so MRI brain was deferred. Would keep off metoprolol for now, no focal neuro deficits are appreciated and neurochecks q4 did not reveal any other neuro issues. Patient was placed on ASA daily along with a statin with a lipid panel pending. Patient's asymptomatic Bradycardia with 4sec duration along with episodes of PVC's was likely Sec to metoprolol likely vs structural heart or IHD or hypothyroidism induced as high TSH seen on last years labs. LAE seen on ECG with evidence of sinus bradycardia with poor R-wave progression and lateral ischemia. Trops x 2 was negative, mag was normal, BP excursions were addressed with IV hydralazine prn along with her losartan. No indication for atropine use or TC pacing due to asymptomatic bradycardia. Patient's dehydration and RAFA was addressed with IVFs, avoidance of nephrotoxic agents, correction of electrolytes with her hyponatremia. Patients dementia was stable and CT head showed microvascular ischemic disease only, Would not treat with Aricept as this is well known for heart blocks, would defer tx for now as she does not display behavioral changes. Patient had Untreated symptomatic hypothyroidism with hx post-thyroidectomy with TSH of 8.48 on 07/30/17. TSH repeat was 11.42 and was started on synthroid 50 mcg po daily to continue as outpatient and recheck TFT's in 6 weeks. - ALLERGIES Allergies/Adverse Reactions: Allergies Allergy/AdvReac Type Severity Reaction Status Date / Time No Known Drug Allergies Allergy Verified 10/04/18 15:55 - MEDICATIONS Home Medications: Ambulatory Orders Medication Instructions Recorded Confirmed Aspirin [Jose] 325 mg PO DAILYWM #30 tablet 10/05/18 Atorvastatin Calcium 40 mg PO QPM #30 tablet 10/05/18 Levothyroxine [Synthroid] 50 mcg PO QDAC #60 tablet 10/05/18 Losartan Potassium [Cozaar] 100 mg PO DAILY 10/05/18 10/05/18 hydrALAZINE [Apresoline] 25 mg PO BID PRN #60 tablet 10/05/18 - PHYSICAL EXAM AT DISCHARGE General Appearance: positive: No acute distress, Alert, Other (demented ) Eyes Bilateral: positive: Normal inspection, PERRL, EOMI ENT: positive: ENT inspection nml, Pharynx nml, No signs of dehydration Neck: positive: Nml inspection, Thyroid nml, No JVD. negative: Thyromegaly, Carotid bruit Respiratory: positive: Chest non-tender, No respiratory distress, Breath sounds nml Cardiovascular: positive: Regular rate & rhythm, No murmur, No gallop. negative: JVD present, Systolic murmur Peripheral Pulses: positive: 2+ Abdomen: positive: Non-tender, No organomegaly, Nml bowel sounds, No distention Skin: positive: Color nml, No rash, Warm Extremities: positive: Non-tender, Nml appearance, Pedal edema - LABS Result Diagrams: 10/04/18 15:58 10/05/18 10:30 - FOLLOW UP Follow Up: PCP in 1-2 weeks - TIME SPENT Time Spent in Discharge (Minutes): 35
--- NOTE | 2018-10-05 09:20 | Discharge Plan ---
Discharge Plan Disposition: Home, Self Care Condition: Good Prescriptions: Aspirin [Jose] 325 mg PO DAILYWM #30 tablet Atorvastatin Calcium 40 mg PO QPM #30 tablet hydrALAZINE [Apresoline] 25 mg PO BID PRN #60 tablet PRN Reason: SBP>160 or DBP>110 Levothyroxine [Synthroid] 50 mcg PO QDAC #60 tablet Diet: Low Sodium Activity Restrictions: Activity as Tolerated Shower Restrictions: No Driving Restrictions: Yes Weight Bearing: Full Weight Instruction Topics: Levothyroxine tablets, Thyroid Stimulating Hormone, Thyroid Common Probs, TIA, Bradycardia Additional Instructions or Follow Up instructions: Will have pt follow up with PCP for further care or return if pt worsens. Pt comfortable with plan. No Smoking: If you smoke, Please STOP! Call for help. Follow-up with: ASHLEY AMBROSIO [Physician No Access] - 2 Weeks
[2018-10-05 10:28] VITALS: BP 120/43
[2018-10-05] MEDS: ASPIRIN 325 MG TABLET PO SCH (10:38)
[2018-10-05 10:49] LABS: ALBUMIN 3.3 g/dL (3.2-5.5); CALCIUM 8.4 mg/dL (8.5-10.3); PHOSPHORUS 3.9 mg/dL (2.5-4.6)
[2018-10-05 10:56] LABS: CHOL/HDL RATIO 2.8 (<4.4); CHOLESTEROL 198 mg/dL; HDL CHOLESTEROL 71 mg/dL; LDL CHOLESTEROL,CALCULATED 110 mg/dL; LDL/HDL RATIO 1.5 (<4.4); VLDL CHOLESTEROL 17 mg/dL
[2018-10-05] MEDS ORDERED: FAMOTIDINE 20 MG TABLET PO SCH (21:00)
[2018-10-05] MEDS ORDERED: ATORVASTATIN 40 MG TABLET PO SCH (21:00)
== END 2018-10-05 13:05 | disposition home or self-care (01) ==
LOC: EDUNIT# → ED 15:37 → OBS 17:06
PROVIDERS: ADMIT Family Medicine; ATTEND Family Medicine
DX: G45.9 Transient cerebral ischemic attack, unspecified (principal); I11.0 Hypertensive heart disease with heart failure; I50.30 Unspecified diastolic (congestive) heart failure; I27.20 Pulmonary hypertension, unspecified; N28.9 Disorder of kidney and ureter, unspecified; F03.90 Unspecified dementia, unspecified severity, without behavioral disturbance, psychotic disturbance, mood disturbance, and anxiety; E86.0 Dehydration; E03.9 Hypothyroidism, unspecified; R00.1 Bradycardia, unspecified; I67.82 Cerebral ischemia
CPT/HCPCS: 36415; 70450; 80053; 80061; 80069; 81003; 83690; 83735; 84439; 84443; 84484; 85025; 85610; 93005; 93306; 96360; 96361; 96372; 99285; A9270; G0378; J1650; 81001; 83721; 87086; 99284

== ENCOUNTER 2019-04-10 20:05 | Emergency (ER) | payer MEDICARE ==
[2019-04-10] MEDS ORDERED: LIDOCAINE 1% 2 ML VIAL SUBQ STA (21:22)
--- NOTE | 2019-04-10 21:23 | ED Physician Documentation ---
PD HPI HEAD INJURY - Stated complaint Stated Complaint: FALL/ HIT HEAD - Chief complaint Chief Complaint: General - History obtained from History obtained from: Patient, Family - History of Present Illness Mechanism of head injury: Fell Where head injury occurred: Home Timing - onset: How many hours ago (2) Location of injury: Back Associated symptoms: No: LOC, AMS, Nausea / vomiting, Neck pain, Paresthesias Contributing factors: No: Anticoagulated, Intoxicated Similar symptoms before: Has not had sx before Recently seen: Not recently seen - Additional information Additional information: slipped on rug in bathroom at home tonight, struck head on floor. c/o head laceration but no generalized headache, denies LOC, denies AMS. She also c/o left wrist pain Review of Systems Eyes: reports: Reviewed and negative GI: denies: Nausea, Vomiting Skin: reports: Laceration (s) Musculoskeletal: reports: Joint pain, Joint swelling. denies: Neck pain, Back pain, Pain with weight bearing Neurologic: reports: Head injury. 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 : None HEENT: None Psych: None Musculoskeletal: None Derm: None - Past Surgical History Past Surgical History: Yes General: Appendectomy HEENT: Tonsil/Adenoidectomy - Present Medications Home Medications: Ambulatory Orders Medication Instructions Recorded Confirmed Aspirin [Jose] 325 mg PO DAILYWM #30 tablet 10/05/18 Atorvastatin Calcium 40 mg PO QPM #30 tablet 10/05/18 Levothyroxine [Synthroid] 50 mcg PO QDAC #60 tablet 10/05/18 Losartan Potassium [Cozaar] 100 mg PO DAILY 10/05/18 10/05/18 hydrALAZINE [Apresoline] 25 mg PO BID PRN #60 tablet 10/05/18 - Allergies Allergies/Adverse Reactions: Allergies Allergy/AdvReac Type Severity Reaction Status Date / Time metoprolol Allergy Unknown Verified 04/10/19 20:13 - Social History Does the pt smoke?: Yes Smoking Status: Current every day smoker Does the pt drink ETOH?: Yes Does the pt have substance abuse?: No - Immunizations Immunizations are current?: Yes Immunizations: TDAP current <10years - POLST Patient has POLST: Yes PD ED PE NORMAL - Vitals Vital signs reviewed: Yes - General General: Alert and oriented X 3, No acute distress, Well developed/nourished - HEENT HEENT: PERRL, EOMI - Neck Neck: No bony TTP - Cardiac Cardiac: RRR, No murmur PD ED PE EXPANDED - HEENT HEENT Visual: 1 - laceration (2.5cm laceration (length)) - Extremities Extremities: Tenderness (mild left wrist tenderness and swelling, lateral (radial aspect)) Results - Vitals Vitals: Vital Signs - 24 hr 04/10/19 04/10/19 04/10/19 20:08 21:00 21:52 Temperature 36.3 C L Heart Rate 99 82 98 Respiratory 19 16 16 Rate Blood Pressure 194/87 H 90/71 166/83 H O2 Saturation 96 100 100 04/10/19 22:50 Temperature Heart Rate 99 Respiratory 17 Rate Blood Pressure 142/72 H O2 Saturation 99 Oxygen O2 Source Room air - Rads (name of study) left wrist xrays Radiology: Prelim report reviewed, See rad report Procedures - Laceration (location) Scalp Posterior Length in cm: 2.5 Neurovascular status: Sensory intact, Motor intact, Vascular intact Anesthesia: Lidocaine 1% Wound Preparation: Chlorhexadine Skin layer closure: [place] Other: Patient tolerated well, No complications, Neurovascular intact, Tetanus UTD Complexity: Simple - Splint (location) Upper extremity left Splint applied by: Tech Type of splint: Short arm, Other (radial gutter) Other: Patient tolerated well, No complications, Neurovascular intact, Good alignment PD MEDICAL DECISION MAKING - ED course Complexity details: reviewed results, re-evaluated patient, considered differential, d/w patient, d/w family Departure - Departure Disposition: 01 Home, Self Care Clinical Impression: Scalp laceration Qualifiers: Encounter type: initial encounter Qualified Code(s): S01.01XA - Laceration without foreign body of scalp, initial encounter Left wrist fracture Qualifiers: Encounter type: initial encounter Fracture type: closed Qualified Code(s): S62.102A - Fracture of unspecified carpal bone, left wrist, initial encounter for closed fracture Condition: Good Instructions: ED Head Injury Closed Sleep Mon, ED Laceration Scalp Stitch Or Stap, ED Fx Wrist General Follow-Up: XAVIER RUIZ MD [Primary Care Provider] - (in 7-9 days for removal of beau) George Collado MD [Provider Admit Priv/Credential] - (in 3-5 days for left wrist fracture) Discharge Date/Time: 04/10/19 23:26
--- NOTE | 2019-04-10 22:12 | XRAY Report ---
Reason: fall, swelling Procedure Date: 04/10/2019 Accession Number: [id number] / [id number] Procedure: XR - Wrist 4 View LT CPT Code: FULL RESULT: EXAM: LEFT WRIST RADIOGRAPHY EXAM DATE: 04/10/2019 09:41 PM. CLINICAL HISTORY: Fall. Pain and swelling. COMPARISON: None. TECHNIQUE: 4 views. FINDINGS: Bones: Suspect a nondisplaced radial styloid fracture. No other fractures are identified. Joints: Narrowing and sclerosis at the first carpometacarpal joint and scaphomultangular joints. No subluxations. Soft Tissues: Associated soft tissue swelling. IMPRESSION: 1. Nondisplaced radial styloid fracture suspected. 2. Osteoarthritis. RADIA
[2019-04-10] MEDS ORDERED: BACITRACIN OINT TOP STA (22:31)
[2019-04-10] MEDS ORDERED: TETANUS/DIPHTHERIA/PERTUSSIS 0.5 ML SYRINGE IM ONE (22:33)
[2019-04-10 22:57] VITALS: BP 142/72
== END 2019-04-10 23:26 | disposition home or self-care (01) ==
LOC: ED 20:05
DX: S52.515A Nondisplaced fracture of left radial styloid process, initial encounter for closed fracture (principal); S01.01XA Laceration without foreign body of scalp, initial encounter; W01.198A Fall on same level from slipping, tripping and stumbling with subsequent striking against other object, initial encounter; Y92.002 Bathroom of unspecified non-institutional (private) residence as the place of occurrence of the external cause; Z23 Encounter for immunization; M19.032 Primary osteoarthritis, left wrist; I10 Essential (primary) hypertension; F03.90 Unspecified dementia, unspecified severity, without behavioral disturbance, psychotic disturbance, mood disturbance, and anxiety; F17.200 Nicotine dependence, unspecified, uncomplicated; Z79.82 Long term (current) use of aspirin
CPT/HCPCS: 12001; 29125; 73110; 90471; 90715; 99282; 99283; A9270

== ENCOUNTER 2019-09-06 08:00 | Outpatient (CLI) | payer MEDICARE | END 2019-09-06 23:59 | LOC: LAB.R 08:00 | PROVIDERS: ATTEND Physician Assistant Medical | DX: R39.15 Urgency of urination (principal) | CPT/HCPCS: 87086 ==

== ENCOUNTER 2019-09-30 14:28 | Outpatient (CLI) | payer MEDICARE | END 2019-09-30 14:29 | disposition home or self-care (01) | LOC: DI 14:28 | PROVIDERS: ATTEND Physician Assistant Medical | DX: I11.9 Hypertensive heart disease without heart failure (principal); I08.1 Rheumatic disorders of both mitral and tricuspid valves; I27.20 Pulmonary hypertension, unspecified | CPT/HCPCS: 93306 ==

== ENCOUNTER 2019-10-22 13:50 | Outpatient (CLI) | payer MEDICARE ==
[2019-10-22 17:28] LABS: BASOPHILS # (AUTO) 0.1 10^3/uL (0.0-0.1); BASOPHILS % (AUTO) 0.5 %; EOSINOPHILS # (AUTO) 0.1 10^3/uL (0.0-0.7); HGB - HEMOGLOBIN 8.8 g/dL (12.0-16.0); LYMPHOCYTES # (AUTO) 1.4 10^3/uL (1.5-3.5); LYMPHOCYTES % (AUTO) 14.3 %; MEAN CORPUSCULAR HEMOGLOBIN 23.2 pg (27.0-31.0); MEAN CORPUSCULAR VOLUME 74.9 fL (81.0-99.0); MEAN PLATELET VOLUME 9.5 fL (7.9-10.8); MONOCYTES # (AUTO) 1.2 10^3/uL (0.0-1.0); MONOCYTES % (AUTO) 12.5 %; NEUTROPHILS # (AUTO) 6.7 10^3/uL (1.5-6.6); NEUTROPHILS % (AUTO) 71.3 %; PLT - PLATELET COUNT 459 10^3/uL (130-450); RED BLOOD COUNT 3.79 10^6/uL (4.20-5.40); RED CELL DISTRIBUTION WIDTH 19.9 % (12.0-15.0); WHITE BLOOD COUNT 9.4 x10^3/uL (4.8-10.8)
[2019-10-22 17:43] LABS: ALBUMIN 3.8 g/dL (3.2-5.5); BILIRUBIN,TOTAL 0.4 mg/dL (0.2-1.0); CALCIUM 8.9 mg/dL (8.5-10.3); CREATININE 0.9 mg/dL (0.4-1.0); TOTAL PROTEIN 7.5 g/dL (6.7-8.2)
[2019-10-22 17:58] LABS: THYROID STIMULATING HORMONE 5.35 uIU/mL (0.34-5.60)
[2019-10-22 17:59] LABS: FREE T4 (FREE THYROXINE) 1.08 ng/dL (0.58-1.64)
[2019-10-22 18:57] LABS: FOLATE > 49.60 ng/mL (5.90 - >24.8)
== END 2019-10-22 13:51 | disposition home or self-care (01) ==
LOC: LAB.S 13:50
PROVIDERS: ATTEND Physician Assistant Medical
DX: I10 Essential (primary) hypertension (principal); R41.89 Other symptoms and signs involving cognitive functions and awareness; Z90.89 Acquired absence of other organs
CPT/HCPCS: 36415; 80053; 82607; 82746; 84439; 84443; 84481; 85025